=== PATIENT | female | born 1940 ===

== ENCOUNTER 2017-04-04 12:59 | Emergency (ER) | payer MEDICARE ==
[2017-04-04 13:19] VITALS: PULSE 80; RESP 18; TEMP 97; O2SAT 99
[2017-04-04 14:59] LABS: MEAN CELL VOLUME 94.8 fl (81.0-99.0); MEAN CORPUSCULAR HEMOGLOBIN 31.1 pg (27.0-31.0); MEAN CORPUSCULAR HGB CONC 32.8 g/dL (33.0-37.0); RBC 4.49 Mil/uL (3.80-5.20); RED CELL DISTRIBUTION WIDTH 13.5 % (11.5-14.5); WHITE BLOOD COUNT 9.2 K/uL (4.8-10.8)
--- NOTE | 2017-04-04 14:59 | ED PDOC ---
Hyperglycemia/Hypoglycemia Time Seen by Provider: 04/04/17 13:48 Chief Complaint (Nursing): Abnormal Labs History Per: Patient History/Exam Limitations: no limitations Onset/Duration Of Symptoms: Hrs (prior to arrival) Current Symptoms Are (Timing): Still Present Severity: None : The patient does not have any of the infectious symptoms listed except for those marked. Treatment Prior To Provider Evaluation: None Additional Complaint(s): Corry Leal is a 76 year old female, whose past medical history includes arthritis, who presents to the emergency department as advised by her PMD, Dr. Mayo in [place], for evaluation of her high potassium level. Patient is currently asymptomatic. Past Medical History Reviewed: Historical Data, Nursing Documentation, Vital Signs Vital Signs: Last Vital Signs Temp 97.0 F L 04/04/17 13:17 Pulse 80 04/04/17 13:17 Resp 18 04/04/17 13:17 BP 187/98 H 04/04/17 13:17 Pulse Ox 99 04/04/17 13:17 - Medical History PMH: Arthritis, Gastritis - Surgical History Surgical History: No Surg Hx - Family History Family History: States: No Known Family Hx - Allergies Allergies/Adverse Reactions: Allergies Allergy/AdvReac Type Severity Reaction Status Date / Time Penicillins Allergy RASH Verified 04/04/17 14:08 Review of Systems ROS Statement: Except As Marked, All Systems Reviewed And Found Negative Constitutional: Negative for: Fever Cardiovascular: Negative for: Chest Pain Physical Exam - Reviewed Nursing Documentation Reviewed: Yes Vital Signs Reviewed: Yes - Physical Exam Appears: Positive for: Well, Non-toxic, No Acute Distress Head Exam: Positive for: ATRAUMATIC, NORMAL INSPECTION, NORMOCEPHALIC Skin: Positive for: Normal Color, Warm, DRY Eye Exam: Positive for: EOMI, Normal appearance, PERRL Neck: Positive for: Normal, Painless ROM Cardiovascular/Chest: Positive for: Regular Rate, Rhythm Gastrointestinal/Abdominal: Positive for: Normal Exam, Bowel Sounds, Soft Neurologic/Psych: Positive for: Alert, bean weigher II-XII, Oriented - Laboratory Results Result Diagrams: 04/04/17 14:50 04/04/17 14:50 - ECG O2 Sat by Pulse Oximetry: 99 (room air) Pulse Ox Interpretation: Normal Medical Decision Making Medical Decision Making: Impression: 76 y/o female advised to come by PMD for high potassium level. Differential Diagnosis included but are not limited to: possible hyperglycemia Plan: -- EKG -- Labs -- Reassess and disposition Progress Notes: Scribe Attestation: Documented by Ary Diego Attestation: All medical record entries made by the Scribe were at my direction and personally dictated by me. I have reviewed the chart and agree that the record accurately reflects my personal performance of the history, physical exam, medical decision making, and the department course for this patient. I have also personally directed, reviewed, and agree with the discharge instructions and disposition. Disposition - Clinical Impression Clinical Impression: Well adult exam - Patient ED Disposition Is Patient to be Admitted: No Doctor Will See Patient In The: Office Counseled Patient/Family Regarding: Studies Performed, Diagnosis, Need For Followup - Disposition Referrals: [facility] [Outside] Disposition: Routine/Home Disposition Time: 15:33 Condition: GOOD Additional Instructions: Follow up with your PCP in as needed within 1 week. Print Language: [place]
[2017-04-04 15:14] LABS: BLOOD UREA NITROGEN 17 mg/dl (7-17); GFR AFRICAN-AMERICAN > 60; GFR NON-AFRICAN AMERICAN > 60; MAGNESIUM 2.2 MG/DL (1.6-2.3)
[2017-04-04 15:45] VITALS: BP 156/87
--- NOTE | 2017-04-05 14:55 | CARD ---
APPROVED REPORT EKG Measurement Heart [id number] <Conclusion> Normal sinus rhythm Minimal voltage criteria for LVH, may be normal variant Borderline ECG
== END 2017-04-04 15:44 | disposition home or self-care (01) ==
LOC: H.ER 12:59
DX: R79.9 Abnormal finding of blood chemistry, unspecified (principal); Z88.0 Allergy status to penicillin